=== PATIENT | female | born 1990 | race Caucasian/White ===

== ENCOUNTER 2018-08-18 18:49 | Emergency (ER) | payer OTHER ==
[~2018-08-18] VITALS: Ht 170.2 cm; Wt 59.9 kg
[2018-08-18] MEDS ORDERED: NORCO 5-325 TA1 EACH PO (20:13)
[2018-08-18] MEDS ORDERED: IBUPROFEN 600600 M1 PO (20:15)
[2018-08-18 20:25] VITALS: BP 117/80
== END 2018-08-18 20:25 | disposition home or self-care (01) ==
LOC: M.ERS 18:49
DX: T23.202A Burn of second degree of left hand, unspecified site, initial encounter (principal); T31.0 Burns involving less than 10% of body surface; Z91.040 Latex allergy status; Z88.6 Allergy status to analgesic agent; X15.0XXA Contact with hot stove (kitchen), initial encounter; Y93.89 Activity, other specified; Y92.89 Other specified places as the place of occurrence of the external cause; Y99.8 Other external cause status